=== PATIENT | female | born 1990 | race Caucasian/White ===

== ENCOUNTER 2019-08-04 10:41 | Inpatient (IN) | payer MEDICAID, SELFPAY ==
[2019-08-04 11:04] VITALS: RESP 18; TEMP 36.6; BMI 29.4
[2019-08-04 11:33] VITALS: TEMP 36.6
[2019-08-04] MEDS: dextrose 5%-lactated ringers 1,000 ML 125 ML IV ×2 (12:16→19:57)
[2019-08-04] MEDS: ampicillin 2,000 MG in sodium chloride 0.9% (plus) 50 ML 100 MG IV (12:17)
[2019-08-04 12:40] LABS: Basophils % 0.2 %; Eosinophils # 0.1 10^3/uL (0.0-0.8); Eosinophils % 0.4 %; Hematocrit 32.2 % (37.0-47.0); Hemoglobin 10.5 g/dL (11.5-15.3); Lymphocytes # 1.2 10^3/uL (0.8-4.8); Lymphocytes % 10.5 %; Mean Corpuscular HGB Conc 32.6 g/dL (30.0-36.0); Mean Corpuscular Hemoglobin 28.2 pg (28.0-34.0); Mean Corpuscular Volume 86.3 fL (81-99); Mean Platelet Volume 10.9 fL (7.4-10.4); Monocytes # 0.6 10^3/uL (0.2-0.9); Monocytes % 4.8 %; Neutrophils # 9.5 10^3/uL (1.8-7.7); Neutrophils % 83.7 %; Nucleated Red Blood Cells % 0 %; Platelet Count 257 10^3/cmm (130-400); Red Blood Count 3.73 10^6/uL (4.1-5.3); Red Cell Distribution Width 14.6 % (12.1-15.1); White Blood Count 11.4 10^3/uL (4.0-10.0)
[2019-08-04] MEDS: miSOPROStol 100 mcg tablet 25 MCG VAGINAL (14:15)
[2019-08-04 15:30] VITALS: RESP 16; TEMP 36.7
[2019-08-04 15:52] LABS: Amphetamines Screen Urine Negative (Negative); Barbiturates Screen Urine Negative (Negative); Benzodiazepines Screen Urine Negative (Negative); Cocaine Screen Urine Negative (Negative); Opiate Screen Urine Negative (Negative); PCP Screen Urine Negative (Negative); THC Screen Urine Negative (Negative)
[2019-08-04] MEDS: ampicillin 1,000 MG in sodium chloride 0.9% (plus) 50 ML 100 MG IV (16:13)
--- NOTE | 2019-08-04 18:40 | PM.OBGYHP ---
Providers/Chief Complaint Admitting Physician: Nidia Oviedo MD Chief Complaint: INDUCTION HPI SUPERVISOR INTERMEDIATES History of Present Illness Kayce Lainez is a 28 year old female 4 para 2-0-1-2 with an EDC of 08/02/2019 as determined by 19-week ultrasound done on 03/09/2019 secondary to unknown last menstrual period and timing of initial presentation for care. She presents at 40-2/7 weeks gestation for elective induction of labor. Her course has been complicated by abnormal glucose tolerance testing during sciatica, tobacco use disorder, headaches and group B strep positive status. Present Details : 4 Para: 2 Dating criteria OB: based on 2nd trimester US only care: good care Ultrasounds: normal mid trimester US Obstetrical complications: other (Abnormal glucose tolerance testing during ) Medical complications OB: neurological (Headaches) and musculoskeletal (Sciatica) Labs Blood type OB HPI: O (+) positive Rubella: Immune RPR: Negative GBS: Positive HBsAG: Negative Other Lab Information: Hemoglobin/hematocrit/platelets: Initially 13.0/30 7.5/196 Urine culture: Negative Antibody screen: Negative Hepatitis C antibody: Negative HIV screen: Negative Pap test: Normal GC/Chlamydia: Negative/negative Quad screen: Declined 1 hour glucose tolerance test: 152 3-hour glucose tolerance test: Fasting of 87, 1 hour of 164, 2-hour of 161, 3-hour 111 Urine drug screen: Negative L&D/Induction Specific History Indication for induction OB: other (Elective) Planned induction method: per misoprostol protocol Review of Systems Const: Denies: fever GI: Denies: abdominal pain, nausea or vomiting : Denies: vaginal bleeding Neuro: Denies: headache Medications/Allergies Home Medications Medication Instructions Recorded Confirmed Last Taken Type [id number] fumarate-FA tab PO 08/04/19 08/04/19 07:45 History [] Allergies Allergy/AdvReac Type Severity Reaction Status Date / Time No Known Allergies Allergy Verified 08/04/19 11:10 [facility] SUPERVISOR INTERMEDIATES Statuses (acute, chronic, etc) shown below reflect problem list status as previously entered and may not be historically accurate Family History (Updated 08/04/19 @ 14:34 by Nidia Lara RN) Family/Other Diabetes Grandmother Cancer Social History (Updated 08/04/19 @ 14:41 by Nidia Lara RN) Smoking and tobacco status: current every day smoker cigarettes Packs smoked per day: 0.5 Years cigarettes smoked: 15 Number of cigarettes per day: 11-20 Quit status (tobacco): not considering quitting Second hand smoke exposure: Yes Alcohol intake: former Desire information about alcohol rehabilitation?: No Counseling given: No Substance/Drug Use: former Date of last use: over 1 year ago Desire information about substance/drug rehabilitation?: No Adopted: No Caregiver/support person: No Lives independently: Yes Household members: significant other and children Marital status: Legally Number of children: 2 Number of grandchildren: 0 service: No Current occupational status: employed History of recent travel: No Sexually active: Yes Current gender identity: Female Special kennedi needs: No Agree to transfusion: Yes History History 4 Term 2 Miscarriages/Ectopic 2 0 Living Children 2 Other Female Reproductive History Hx Age of Menarche: 13 Duration of menses: 6-7 days Cycle Length: 29 days Menstrual flow: normal/abnormal: normal Sexual History Are you sexually active?: Yes Have you ever tested positive for HIV?: No Pap Pap: Normal 02/14/2019 Care AVTAR Calculator Estimated Delivery Date Method Current WG Current Estimate 08/02/19 Ultrasound #1 40w 2d Expected Delivery Route/Plan Vaginal Specific Issues/Plans See scanned record for OB visit log OB Visit Log Initial Weight: Not Recorded Date <del>?</del> EGA Weight BP Albumin <del>?</del> Glucose Nitrate <del>?</del> Blood Fundal Ht PRES HR Movement Edema Dilation Effacement Station 08/04/19 <del>?</del> 40w 2d 73.028 kg <del>?</del> <del>?</del> Vertex 130 135 130 125 125 125 125 135 140 140 140 -2 Vitals/I&O/Wt Last Vital Signs Temp 98.0 F 08/04/19 15:30 Resp 16 08/04/19 15:30 08/04/19 08/04/19 08/04/19 06:59 14:59 22:59 Intake Total 341.667 / 341.667 Balance 341.667 / 341.667 Weight last 48 hrs Weight 73.028 kg Physical Exam Narrative: EXAM NARRATIVE: For complete physical examination please refer to her record. Upon arrival this morning she had mild infrequent contractions and heart tones had a baseline within normal limits with moderate variability, accelerations and no decelerations. : MANUAL OB EXAM: dilated 3 cm, effaced (30%), station high and other (Vertex, membranes intact) A&P Assessment and plan (1) 40 weeks gestation of : Status: Acute Code(s): Z3A.40 - 40 weeks gestation of (2) Encounter for induction of labor: Cytotec as discussed in the office with patient Status: Acute Code(s): Z34.90 - Encounter for supervision of normal , unspecified, unspecified trimester (3) Group B Streptococcus carrier state affecting : Antibiotics per the group be strep protocol prior to initiation of Cytotec Status: Acute Code(s): O99.820 - Streptococcus B carrier state complicating (4) Smoking (tobacco) complicating , third trimester: Continue to encourage cessation Status: Acute Code(s): O99.333 - Smoking (tobacco) complicating , third trimester Additional A&P Information Additional A&P Information: Patient is also desirous of sterilization and has her consent signed 02/14/2019 and on her chart with office consultation at least scheduled and I believe completed. We will consult [facility] women's health care upon delivery. Attestations Medical Necessity Statement*: As patient has not yet delivered she will require at least 2 overnight stays. Coding Level of Care Code Acute Home Theater Specialist for Chg Fwd Diagnoses 40 weeks gestation of Z3A.40 Encounter for induction of labor Z34.90 Group B Streptococcus carrier state affecting O99.820 Smoking (tobacco) complicating , third trimester O99.333
[2019-08-04] MEDS: lactated ringers 1,000 ML 999 ML IV (18:43)
[2019-08-04] MEDS: oxytocin 30 UNIT/500 ML BAG 600 UNIT IV (19:28)
[2019-08-04] MEDS: lidocaine 2% INJ 20 mL INJECTION (20:09)
--- NOTE | 2019-08-04 20:53 | PM.DELIVERY ---
 Delivery Note: Date of delivery: 08/04/19 Pre-Delivery Course: Patient arrived late this morning for planned induction of labor electively at 40-2/7 weeks gestation. When she arrived she was antonieta mildly and very occasionally and was 3 cm dilated and 30% effaced, -3 station which was her exact same exam 1 week ago in clinic. We began antibiotics per the group B strep protocol, and 2 hours into her first dose of antibiotics we gave her a dose of Cytotec to begin her induction. The Cytotec was given at 1415 this afternoon. Patient began antonieta albeit infrequently but with increasing frequency and intensity throughout the afternoon. At 1835 she was 4 to 5 cm dilated and antonieta every 1 to 1-1/2 minutes off of the first dose of Cytotec but is been given 4 hours prior. At that time, since she was 50% effaced and -2 station we elected to perform amniotomy. This was done at 1835 and was productive of a small amount of clear fluid. Shortly thereafter she was 6 cm dilated and was being prepared for her requested epidural. However within the next 45 minutes she was completely dilated. Delivery: Patient was completely dilated at 1916. We rapidly prepared for delivery and she began the active portion of the second stage of her labor at 1918 and delivered with 1 push at 1918 as well. Baby's head was straight OA. Nuchal cord x1 was loose and easily manually reduced on the perineum. Bulb suctioning was done upon delivery of the baby's head and of the baby's body. Terminal meconium was noted upon delivery. Baby was placed on maternal abdomen while cord was clamped by myself, cut by the father the baby and cord blood obtained. Delayed cord clamping was performed 40 seconds postdelivery. Baby was placed skin to skin nearly immediately. Gentle traction was placed on the cord, and intravenous Pitocin in routine doses was begun. Placenta delivered intact at 1928 and appeared mature and otherwise without defect. Fundal massage revealed a firm uterus. The perineum and cervix were inspected, and a second-degree perineal laceration was found and repaired with 2-0 chromic suture in standard 3 layer fashion after a local of 1 mL of lidocaine. Estimated blood loss was 300 mL and appeared to be mostly the placental separation bleeding. Post-Delivery Status: Mother and baby were stable. Baby had Apgars of 8 at 1 minute and 9 at 5 minutes and weighed 7 pounds 8 ounces/3 405 g. Patient was desirous of sterilization. Dr. Liang was consulted shortly after delivery. A&P Assessment and plan (1) 40 weeks gestation of : Status: Resolved Code(s): Z3A.40 - 40 weeks gestation of (2) Encounter for induction of labor: Status: Resolved Code(s): Z34.90 - Encounter for supervision of normal , unspecified, unspecified trimester (3) Group B Streptococcus carrier state affecting : Status: Resolved Code(s): O99.820 - Streptococcus B carrier state complicating (4) Smoking (tobacco) complicating , third trimester: Status: Resolved Code(s): O99.333 - Smoking (tobacco) complicating , third trimester (5) Normal vaginal delivery of fourth : Routine orders Status: Acute Code(s): O80 - Encounter for full-term uncomplicated delivery (6) Second degree perineal laceration during delivery, delivered: Status: Acute Code(s): O70.1 - Second degree perineal laceration during delivery (7) Abnormal glucose tolerance test during , delivered: Status: Acute Code(s): O99.814 - Abnormal glucose complicating childbirth Coding Level of Care Code Acute Band Aid Machine Operator for Chg Fwd Diagnoses 40 weeks gestation of Z3A.40 Encounter for induction of labor Z34.90 Group B Streptococcus carrier state affecting O99.820 Smoking (tobacco) complicating , third trimester O99.333 Normal vaginal delivery of fourth O80 Second degree perineal laceration during delivery, delivered O70.1 Abnormal glucose tolerance test during , delivered O99.814
[2019-08-04 21:00] VITALS: RESP 16
--- NOTE | 2019-08-04 21:12 | PM.CONSULT ---
Providers/Reason For Consult Consulting Physican/Specialty*: Kit Liang MD - TECHNOLOGY SALES REPRESENTATIVE Reason for Consult*: Desires sterilization Requesting Physcian: Dr. Nidia Oviedo Attending Physician: Nidia Oviedo MD History of Present Illness History of Present Illness Patient is a 28-year-old white female 4, now para 3-0-1-3 with an EDC of 08/02/2019. She is status post vaginal delivery earlier this evening. Patient had stated during the that she did not want any further children wanted to proceed with sterilization. This has been previously discussed by Dr. Oviedo with the patient. She had signed Medicaid consent form on 02/14/2019. Following delivery, she is still adamant that she wishes to proceed with sterilization. She states that she does not want any further children. She does desire what ever procedure is considered the most effective at preventing . Review of Systems Const: Denies: fever or chills Eyes: Denies: change in vision ENMT: Denies: throat pain Card: Denies: chest pain, palpitations or lightheadedness Resp: Reports: productive cough; Denies: shortness of breath or wheezing GI: Denies: abdominal pain, nausea, vomiting or diarrhea : Denies: difficulty urinating, painful urination or vaginal discharge Neuro: Denies: headache, dizziness or seizure-like activity Psych: Denies: anxiety or depression Endo: Denies: cold intolerance or hot flashes Nura/Lymph: Denies: easy bruising or easy bleeding All/Imm: Denies: hives or seasonal allergies Meds/Allergies Home Medications and Allergies Allergies Allergy/AdvReac Type Severity Reaction Status Date / Time No Known Allergies Allergy Verified 08/04/19 11:10 Current Medications Current Medications Generic Name Dose Route Start Last Admin Trade Name Freq PRN Reason Stop Dose Admin Dextrose/Lactated Ringer's 1,000 mls @ 125 mls/hr 08/04/19 11:45 08/04/19 19:57 Dextrose 5%-Lactated Ringers IV 125 mls/hr .Q8H KRIS Administration Ampicillin Sodium 1,000 mg/ 50 mls @ 100 mls/hr 08/04/19 15:45 08/04/19 16:44 Sodium Chloride IV Infused Q4H KRIS Infusion Protocol Ampicillin Sodium 2,000 mg/ 50 mls @ 100 mls/hr 08/04/19 11:45 08/04/19 12:48 Sodium Chloride IV Infused ONCE KRIS Infusion Protocol Lactated Ringer's 1,000 mls @ 999 mls/hr 08/04/19 18:23 08/04/19 18:43 Lactated Ringers IV 999 mls/hr .Q1H1M PRN Administration hypotension PFSH Acute PFSH: Statuses (acute, chronic, etc) shown below reflect problem list status as previously entered and may not be historically accurate Medical History Chronic headaches (Acute) Family History Family/Other Diabetes uncle Grandmother Cancer Mother Hypertension Social History Smoking and tobacco status: current every day smoker cigarettes Packs smoked per day: 0.5 Years cigarettes smoked: 15 Number of cigarettes per day: 11-20 Quit status (tobacco): not considering quitting Second hand smoke exposure: Yes Alcohol intake: former Desire information about alcohol rehabilitation?: No Counseling given: No Substance/Drug Use: former Date of last use: over 1 year ago Desire information about substance/drug rehabilitation?: No Adopted: No Caregiver/support person: No Lives independently: Yes Household members: significant other and children Marital status: Legally Number of children: 2 Number of grandchildren: 0 service: No Current occupational status: employed History of recent travel: No Sexually active: Yes Current gender identity: Female Special kennedi needs: No Agree to transfusion: Yes Female Reporductive History: : 4 Para: 3 Spontaneous abortions: Yes (1) Vitals/I&O/Wt Last Vital Signs Temp 98.0 F 08/04/19 15:30 Resp 16 08/04/19 15:30 08/04/19 08/04/19 08/04/19 06:59 14:59 22:59 Intake Total 50 / 50 391.667 / 441.667 Balance 50 / 50 391.667 / 441.667 Weight last 48 hrs Weight 161 lb Physical Exam Const: COMMON NORMALS: no apparent distress, average body habitus, alert and well nourished GENERAL APPEARANCE: well developed ORIENTATION/CONSCIOUSNESS: Yes oriented to person, Yes oriented to place and Yes oriented to time Neck/C-Spine: COMMON NORMALS: thyroid normal GENERAL: Yes trachea midline THYROID: thyroid normal Resp: COMMON NORMALS: normal respiratory effort and clear to auscultation bilaterally AUSCULTATION: clear to auscultation bilaterally Cardio: COMMON NORMALS: regular rate, regular rhythm, no gallops and no rub RATE: regular rate RHYTHM: regular rhythm PERIPHERAL PULSES: posterior tibial pulses present GI: COMMON NORMALS: soft to palpation, non-tender, no hepatosplenomegaly and no masses (Except for nontender uterus approximately 1 fingerbreadth below the umbilicus) AUSCULTATION: Yes normoactive bowel sounds PALPATION: Yes soft, Yes no hepatosplenomegaly and No hernia : EXTERNAL FEMALE EXAM: No hernia Neuro: SENSORIUM/ORIENTATION: Yes alert, Yes oriented to person, Yes oriented to place and Yes oriented to time Psych: COMMON NORMALS: affect normal MOOD & AFFECT: Yes euthymic mood A&P Assessment and plan (1) Sterilization consult: Permanence of sterilization was discussed with the patient in detail. Alternatives including reversible methods and vasectomy were discussed with the patient. Risks and failure rates associated with these methods were discussed. Different sterilization methods including and interval sterilization by partial salpingectomy, complete salpingectomy, tubal fulguration, and Falope ring application were discussed including failure rates, surgical risks, and expectations following surgery. Inability of complete salpingectomy to be reversed was discussed. Risk of ectopic was discussed. Questions were answered. She wished to schedule for an interval sterilization with complete removal of tubes. Since her original Medicaid consent would be beyond the 180 days at the time that the procedure could be performed, Medicaid consent was re-signed today, 08/04/2019. Patient to be scheduled for outpatient laparoscopic bilateral tubal fulguration with complete salpingectomy at approximately 5 to 6 weeks post delivery. Status: Acute Code(s): Z30. - Encounter for other general counseling and advice on contraception Coding Level of Care Code Acute Mining Plant Operator for Chg Fwd Exam Problem Focused Diagnoses Sterilization consult Z
[2019-08-04] MEDS: benzocaine-menthol 78 gm Canister 1 SPRAY TOPICAL (21:30)
[2019-08-04] MEDS: lanolin oint 7 gm 1 APPLIC TOPICAL (21:31)
[2019-08-04] MEDS: HYDROcodone-acetaminophen 5-325 mg Tablet 1 TAB PO (22:16)
[2019-08-04 23:30] VITALS: BP 128/75; PULSE 78; RESP 17; TEMP 37.2; O2SAT 96
[2019-08-05] VITALS (8 sets, daily range): BP systolic 112–131; BP diastolic 68–81; PULSE 70–83; RESP 15–16; TEMP 36.6–36.9; O2SAT 95–96
[2019-08-05] MEDS: HYDROcodone-acetaminophen 5-325 mg Tablet 1 TAB PO ×4 (04:02→18:21)
--- NOTE | 2019-08-05 08:16 | P.DS_ITS ---
Discharge Providers METAL SLITTER Date of Admission: 08/04/19 10:41 Date of Discharge: 08/05/19 Attending Provider at Admission: Nidia Oviedo MD Attending Provider at Discharge: Nidia Oviedo MD Consults: Dr. Liang from [facility] regarding sterilization procedure which patient has chosen to do as an interval procedure. Diagnoses at Discharge Discharge Diagnosis (1) 40 weeks gestation of : Status: Resolved (2) Encounter for induction of labor: Status: Resolved (3) Group B Streptococcus carrier state affecting : Status: Resolved (4) Smoking (tobacco) complicating , third trimester: Status: Resolved (5) Normal vaginal delivery of fourth : Status: Acute (6) Second degree perineal laceration during delivery, delivered: Status: Acute (7) Abnormal glucose tolerance test during , delivered: Status: Acute Reason for Visit Reason for Visit: Reason For Visit: INDUCTION Hospital Course Hospital Course: Patient arrived yesterday at around noon for a planned induction that had been postponed from 08/03/2019 secondary to 40-2/7 weeks gestation. As she was group B strep positive we began with antibiotics per the group B strep protocol. 2 hours into the first dose we gave her a dose of Cytotec vaginally. She began to contract as frequently as every 1 to 1-1/2 minutes. After she had received 2 doses of the antibiotics over a 4-hour period of time she was found to be 4 to 5 cm dilated. At that time we performed amniotomy and she rapidly dilated to complete and delivered a viable female infant with less than 1 push. She sustained a second-degree perineal laceration which was repaired in the typical manner with minimal blood loss. Today she is feeling fine and has some perineal soreness and some cramping with breast- feeding but minimal bleeding. She plans to pursue an interval sterilization procedure 6 weeks . She is ready for discharge and plans to board with her baby who will be discharged tomorrow. Information Peripartum Data: Infant Delivery Method: Vaginal Laceration description: Perineal - 2nd Degree (Repaired) complications: none [place]: 3: Gender: Female Disposition of : home Additional Information: Baby needs to stay for another 24 hours to meet the standard of care for mother with group B strep with adequate intrapartum antibiotic prophylaxis Physical Exam Const: COMMON NORMALS: no apparent distress, no limitations and healthy appearing GENERAL APPEARANCE: cooperative and comfortable ORIENTATION/CONSCIOUSNESS: Yes awake, Yes oriented to person, Yes oriented to place and Yes oriented to time Resp: COMMON NORMALS: normal respiratory effort and clear to auscultation bilaterally EFFORT & INSPECTION: Yes able to speak in complete sentences AUSCULTATION: clear to auscultation bilaterally Cardio: COMMON NORMALS: regular rate, regular rhythm, S1 normal heart sound, S2 normal heart sound and peripheral pulses 2+ throughout; negative for no murmurs RATE: regular rate RHYTHM: regular rhythm HEART SOUNDS: S1 normal, S2 normal and no murmurs PERIPHERAL PULSES: pulses 2+ throughout : UTERUS PALPATION: Yes other OB (Firm and 2 fingerbreadths below the umbilicus, nontender) Extremity: COMMON NORMALS: no clubbing, cyanosis or edema Neuro: SENSORIUM/ORIENTATION: Yes oriented to person, Yes oriented to place and Yes oriented to time Psych: COMMON NORMALS: mental status grossly normal, thought process normal, cooperative, affect normal and speech normal SPEECH: Yes normal speech THOUGHT PROCESS: normal thought process Discharge Data Data Completed and Pending: Pending at discharge Category Date Time Status Hemagram Routine Lab 08/05/19 08:14 Ordered Labs from last 24 hours 08/04/19 08/04/19 13:35 11:45 WBC 11.4 H RBC 3.73 L Hgb 10.5 L Hct 32.2 L MCV 86.3 MCH 28.2 MCHC 32.6 RDW 14.6 Plt Count 257 MPV 10.9 H Neut % (Auto) 83.7 Lymph % (Auto) 10.5 [place] % (Auto) 4.8 Eos % (Auto) 0.4 Baso % (Auto) 0.2 Neut # (Auto) 9.5 H Lymph # (Auto) 1.2 [place] # (Auto) 0.6 Eos # (Auto) 0.1 Baso # (Auto) 0.0 Nucleated RBC % (a uto) 0 Nucleated RBCs # 0.0 Urine Opiates Scre en Negative Ur Barbiturates Sc reen Negative Ur Phencyclidine S crn Negative Ur Amphetamines Sc reen Negative U Benzodiazepines Scrn Negative Urine Cocaine Scre en Negative U Marijuana (THC) Screen Negative Vitals: Last Vital Signs Temp 98.1 F 08/05/19 05:30 Pulse 71 08/05/19 05:30 Resp 16 08/05/19 05:30 BP 122/78 08/05/19 05:30 Pulse Ox 96 08/05/19 05:30 Discharge Plan Discharge Patient Disposition: Home, Self-Care Condition: Stable Prescriptions: New ibuprofen 800 mg Tablet 800 mg PO TID Qty: 30 RF: 1 hydrocodone-acetaminophen 5-325 mg Tablet 1 tab PO Q4H PRN (Reason: Moderate Pain) Qty: 30 RF: 0 Changed 28-800 mg-mcg Tablet 1 tab PO DAILY Qty: 30 RF: 3 Discharge Orders: Discharge Order (Routine); Ordered 08/05/19 Ordered By: Nidia Oviedo Referrals: Nidia Oviedo MD [Family Provider] - 6 Weeks ( visit with Dr. Oviedo at our [facility] location.) Discharge Diet: Usual diet Discharge Activity: Resume usual activity Patient Instructions: Hydrocodone/Acetaminophen (By mouth), Ibuprofen (By mouth), Vaginal Delivery (DC), OB Discharge Report, OB Food/Drug Interaction Guide, OB Home Care, OB Proud Parent Packet Activity Restrictions/Additional Instructions: *Nothing per vagina x6 weeks *Reference vaginal delivery care notes. Discharge Attestations METAL SLITTER Time Spent in Discharge Care*: less than 30 min Specific Discharge Activities: Specific discharge activities: educating patient, documenting/other paperwork and evaluating patient/reviewing data Status at Discharge: Cognitive status at discharge: cognitively intact , Behavioral status at discharge: cooperative , Functional status at discharge: independent ambulation Overall status at discharge: patient is progressing back to baseline Coding Level of Care Code Acute Executive Sales Assistant for Chg Fwd Diagnoses 40 weeks gestation of Z3A.40 Encounter for induction of labor Z34.90 Group B Streptococcus carrier state affecting O99.820 Smoking (tobacco) complicating , third trimester O99.333 Normal vaginal delivery of fourth O80 Second degree perineal laceration during delivery, delivered O70.1 Abnormal glucose tolerance test during , delivered O99.814
[2019-08-05 08:55] LABS: Hematocrit 33.5 % (37.0-47.0); Hemoglobin 10.8 g/dL (11.5-15.3); Mean Corpuscular HGB Conc 32.2 g/dL (30.0-36.0); Mean Corpuscular Hemoglobin 27.8 pg (28.0-34.0); Mean Corpuscular Volume 86.3 fL (81-99); Mean Platelet Volume 10.8 fL (7.4-10.4); Platelet Count 271 10^3/cmm (130-400); Red Blood Count 3.88 10^6/uL (4.1-5.3); Red Cell Distribution Width 14.6 % (12.1-15.1); White Blood Count 11.7 10^3/uL (4.0-10.0)
[2019-08-05] MEDS: docusate sodium 100 mg Capsule PO ×2 (09:22→18:22)
[2019-08-05] MEDS: prenatal vitamin Capsule 1 CAP PO (09:22)
== END 2019-08-05 21:11 | disposition home or self-care (01) | DRG 807 ==
PROVIDERS: Admitting Provider Family Medicine; Family Provider Family Medicine; Visit Provider Family Medicine
DX: O69.2XX0 Labor and delivery complicated by other cord entanglement, with compression, not applicable or unspecified (principal); Z37.0 Single live birth; O99.824 Streptococcus B carrier state complicating childbirth; O70.1 Second degree perineal laceration during delivery; O99.334 Smoking (tobacco) complicating childbirth; F17.210 Nicotine dependence, cigarettes, uncomplicated; O99.814 Abnormal glucose complicating childbirth; Z3A.40 40 weeks gestation of pregnancy
CPT/HCPCS: 36415; 59025; 59409; 80307; 85025; 85027; 98960; 99211; 99221; J0290; J2001; J2795

== ENCOUNTER 2019-09-06 07:13 | Day surgery (SDC) | payer MEDICAID, SELFPAY ==
[2019-09-01 11:59] VITALS: BMI 25.6
--- NOTE | 2019-09-01 12:32 | ANES.PREANES ---
Pre-Anesthetic Assessment Pre-Anesthetic Assessment: Height/Weight: Height 1.57 m Weight 63.503 kg Proposed Procedure: Operation Date: 09/06/19 10:05 Proposed Procedures p Laparoscopic Tubal Fulguration 48442 Z30.2(Not Applicable) - Kit Liang MD s Laparoscopic Salpingectomy(Not Applicable) - Kit Liang MD Social: Social History: Tobacco Exam: Pre-Anes Outpt Exam: alert, oriented x 3, clear to auscultation bilaterally and regular rate & rhythm Airway: Submandibular: WNL Cervical ROM: WNL MP: 2 Dentition: Other (teeth very poor) History/ROS: No significant history except as noted Pulmonary: Pulmonary: None reported CV/HEM: CV/HEM: None reported : : None reported Hepatic: Hepatic: None reported GI: GI: GERD (occ) Metabolic: Metabolic: None reported Musc/skel: Musc/skel: None reported Neuropsych: Neuropsych: Anxiety and Depression Anesthetic Plan: ASA status: II Anesthesia: Anesthesia Evaluation and General Risk of > 500 ml blood loss (7ml/kg in children): No PFSH Anesthesia PFSH: Social History (Updated 09/01/19 @ 09:25 by Emma Jerez LPN) Smoking and tobacco status: current every day smoker cigarettes Packs smoked per day: 0.5 Years cigarettes smoked: 15 Quit status (tobacco): not considering quitting Alcohol intake: former Desire information about alcohol rehabilitation?: No Counseling given: No Substance/Drug Use: never Marital status: Legally Number of children: 2 Number of grandchildren: 0 Female Reproductive History: Para: 3 Spontaneous abortions: Yes (1) Data Anesthesia Cardiac Studies: No Data to Display
[2019-09-01 12:49] LABS: Basophils % 0.3 %; Eosinophils # 0.1 10^3/uL (0.0-0.8); Eosinophils % 2.3 %; Hematocrit 42.3 % (37.0-47.0); Hemoglobin 13.7 g/dL (11.5-15.3); Lymphocytes # 1.9 10^3/uL (0.8-4.8); Lymphocytes % 30.6 %; Mean Corpuscular HGB Conc 32.4 g/dL (30.0-36.0); Mean Corpuscular Hemoglobin 28.1 pg (28.0-34.0); Mean Corpuscular Volume 86.9 fL (81-99); Mean Platelet Volume 10.4 fL (7.4-10.4); Monocytes # 0.3 10^3/uL (0.2-0.9); Monocytes % 5.3 %; Neutrophils # 3.7 10^3/uL (1.8-7.7); Neutrophils % 61.3 %; Nucleated Red Blood Cells % 0 %; Platelet Count 271 10^3/cmm (130-400); Red Blood Count 4.87 10^6/uL (4.1-5.3); Red Cell Distribution Width 14.9 % (12.1-15.1)
[2019-09-06 07:31] LABS: OR HCG Qualitative Urine Negative (Negative)
[2019-09-06 07:32] VITALS: BP 95/62; PULSE 67; RESP 18; TEMP 36.4; O2SAT 98
[2019-09-06] MEDS: sodium chloride 0.9% 1,000 ML 30 ML IV (07:40)
[2019-09-06] MEDS: ketorolac 30 mg/mL INJ IVP (07:41)
--- NOTE | 2019-09-06 07:45 | P.ANESUD_ITS ---
Pre-Anesthetic Update Pre-Anesthetic Assessment: Date of Surgery/Procedure: 09/06/19 Preop Purvi gnosis: Undesired fertility Proposed Procedure: Operation Date: 09/06/19 08:40 Proposed Procedures p Laparoscopic Tubal Fulguration 30986 Z30.2(Not Applicable) - Kit Liang MD s Laparoscopic Salpingectomy(Not Applicable) - Kit Liang MD Any changes to Pre-Anesthetic Assessment?: No Last Intake: Intake Last Liquid Date 09/05/19 Last Liquid Time 20:00 Last Solid Date 09/05/19 Last Solid Time 20:00 Labs Last 48hrs: Laboratory Results - last 48 hr 09/06/19 07:28 Urine HCG, Qual Negative Vitals: Temperature 97.5 F L 09/06/19 07:32 Temperature Source Tympanic 09/06/19 07:32 Pulse Rate 67 09/06/19 07:32 Pulse Rhythm 09/06/19 07:32 Respiratory Rate 18 09/06/19 07:32 Blood Pressure 95/62 09/06/19 07:32 Blood Pressure Tasha n 73 09/06/19 07:32 Pulse Oximetry 98 09/06/19 07:32 Oxygen Delivery Me thod 09/06/19 07:32 Exam: Pre-Anes Outpt Exam: alert, oriented x 3, clear to auscultation bilaterally and regular rate & rhythm Other Pertinent Information: Other Pertinent Information: No medications this morning Cardiac Studies: No Data to Display
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
--- NOTE | 2019-09-06 09:45 | P.OP_ITS ---
Operative Report Date of procedure: September 06, 2019 Pre-op Diagnosis: Undesired Fertility Post-op Diagnosis: Undesired fertility Procedure Done: Laparoscopic bilateral tubal fulguration with salpingectomy Specimens removed/disposition: Right and left fallopian tubes Surgeon: Kit Liang Anesthesia: General Estimated blood loss (mL): 2 IV fluids (mL): 500 Brief History: Patient is a 29-year-old white female 4, para 3-0-1-3 who is . She delivered on 08/04/2019. She is stated during her that she did not want any further children want to proceed with sterilization. Following delivery she had decided to proceed with complete removal of tubes and have procedures performed as an interval sterilization. She is still adamant that she wishes to proceed with complete removal of tubes. I reviewed with her that this could not be reversed. Failure rates and risk for ectopic were reviewed. Questions were answered and she still wished to proceed with complete removal of tubes. Medicaid consent form signed 08/04/2019 Procedure: Patient was taken to the operating room were general anesthesia was obtained. She was prepped and draped in the usual sterile fashion in the dorsal supine position with legs in John style stirrups. Sequential compression boots were placed prior to starting the case. Catheter was inserted and bladder was drained. Exam under anesthesia was performed and patient was found to have second-degree uterine prolapse. Weighted speculum was placed in the vagina and the cervix was grasped with a single-tooth tenaculum. A ZUMI was placed. The infraumbilical region was injected with 1% lidocaine with epinephrine. Skin incision was made with the knife in the lower edge of the navel and a size 10 tr ocar and sheath were inserted under direct visualization using an Optiview type technique. Trocar was removed and replaced with a laparoscope confirming intra- abdominal placement. The abdomen was inflated with carbon dioxide. The anterior abdominal wall was inspected and noted to be free of adhesions. In the left and right lower quadrants lateral to the inferior epigastric vessels, the skin was injected with 1% lidocaine with epinephrine. Skin incisions were made with a knife and a 5 mm trocar and sheath were inserted under direct visualization at each site. The pelvis was thoroughly inspected. The left tube and ovary were normal in appearance. Uterus was normal in appearance. Anterior and posterior cul-de-sacs were normal in appearance. Using the LigaSure device, starting on the left side at the fimbriated end of the tube, the mesosalpinx was sealed and cut along the length of the tube. At the proximal end of the tube, the tube itself was sealed and cut. The fallopian tube was brought out through the trocar sleeve. Using the LigaSure device, starting on the right side at the fimbriated end of the tube, the mesosalpinx was sealed and cut along the length of the tube. At the proximal end of the tube, the tube itself was sealed and cut. The fallopian tube was brought out through the trocar sleeve. The dissection area was thoroughly inspected and noted to be hemostatic. The abdomen was deflated and the sleeves removed. The umbilical site was reapproximated with 4-0 Vicryl suture. The 5 mm sites reapproximated well and required no suturing. Skin glue was applied to all sites. The ZUMI was removed and there was minimal bleeding from the tenaculum site. Patient tolerated the procedure well. Sponge, needle and instrument counts were correct. DRAINS: None COMPLICATIONS: None FINDINGS: Second-degree uterine prolapse. Normal-appearing uterus, tubes, and ovaries. POSTOPERATIVE STATUS: The patient was transferred to the recovery room in satisfactory condition. DISPOSITION: Discharge to home when criteria was met. FOLLOWUP APPOINTMENT: Followup appointment is scheduled in my office on 09/30/2019. MEDICATIONS: Patient received prescriptions for: [place] 5/325 mg, 1 to 2 tablets every 6 hours as needed for pain, #20, 0 refills She may continue her usual home medications (patient reports having ibuprofen 800 mg tablets at home).
[2019-09-06 09:54] VITALS: BP 115/52; PULSE 110; RESP 16; TEMP 36.5; O2SAT 96
[2019-09-06 10:00] VITALS: BP 97/48; PULSE 77; RESP 18; O2SAT 97
[2019-09-06 10:05] VITALS: BP 98/50; PULSE 77; RESP 18; TEMP 36.9; O2SAT 97
[2019-09-06 10:08] VITALS: BP 113/70; PULSE 81; RESP 18; TEMP 36.9; O2SAT 93
[2019-09-06] MEDS: HYDROcodone-acetaminophen 5-325 mg Tablet 1 TAB PO (10:35)
[2019-09-06 10:37] VITALS: BP 110/73; PULSE 67; RESP 18; O2SAT 95
== END 2019-09-06 10:55 | disposition home or self-care (01) ==
PROVIDERS: Family Provider Family Medicine; PCP Family Medicine; Visit Provider Obstetrics & Gynecology
PROC: (CPT 58670; principal; 2019-09-06 08:40)
PROC: (CPT 58661; 2019-09-06 08:40)
DX: Z83.3 Family history of diabetes mellitus (principal); Z82.49 Family history of ischemic heart disease and other diseases of the circulatory system; F17.210 Nicotine dependence, cigarettes, uncomplicated; K21.9 Gastro-esophageal reflux disease without esophagitis
CPT/HCPCS: 58661; 12345; 36415; 81025; 84703; 85025; 88302; J1885; J2001; J2405; J2704; J2710; J3010; J3490; J7030

== ENCOUNTER → 2020-03-16 11:55 | Outpatient (BNVA) | payer MEDICAID, SELFPAY | PROVIDERS: Family Provider Family Medicine; PCP Family Medicine; Visit Provider Nurse Practitioner Family | DX: E04.9 Nontoxic goiter, unspecified (principal); H65.193 Other acute nonsuppurative otitis media, bilateral | CPT/HCPCS: 80053; 84439; 84443; 84481; 85025; 86800 ==

== ENCOUNTER → 2020-04-03 12:41 | Outpatient (BNVA) | payer MEDICAID, SELFPAY | PROVIDERS: Family Provider Family Medicine; PCP Family Medicine; Visit Provider Internal Medicine | DX: E05.90 Thyrotoxicosis, unspecified without thyrotoxic crisis or storm (principal); D70.9 Neutropenia, unspecified; E04.9 Nontoxic goiter, unspecified; R74.0 Nonspecific elevation of levels of transaminase and lactic acid dehydrogenase [LDH] | CPT/HCPCS: 99205 ==

== ENCOUNTER → 2020-04-04 10:25 | Outpatient (BNVA) | payer MEDICAID, SELFPAY | PROVIDERS: Family Provider Family Medicine; PCP Family Medicine; Visit Provider Internal Medicine | DX: E05.90 Thyrotoxicosis, unspecified without thyrotoxic crisis or storm (principal); D70.9 Neutropenia, unspecified; E04.9 Nontoxic goiter, unspecified; R74.0 Nonspecific elevation of levels of transaminase and lactic acid dehydrogenase [LDH] | CPT/HCPCS: 80076; 83516; 84439; 84480; 85025 ==

== ENCOUNTER 2020-04-10 14:16 | Outpatient (CLI) | payer MEDICAID, SELFPAY ==
--- NOTE | 2020-04-10 14:19 | US_ITS ---
WS: [id number] ULTRASOUND THYROID TECHNIQUE: Ultrasound of the thyroid. CLINICAL INFORMATION: enlarged thyroid, hyperthyroid COMPARISON: None. FINDINGS: Thyroid: Enlarged heterogeneous thyroid. Thyroid volume significantly enlarged. Diffuse increased thy roid vascularity can be seen with thyroiditis. Right thyroid lobe: 6.7 cm x 3.5 cm x 3.3 cm Left thyroid lobe: 6.6 cm x 3.7 cm x 2.8 cm. Isthmus: 1.3 mm. Cervical lymphadenopathy: None. US/US thyroid 47101 IMPRESSION: 1. Markedly enlarged heterogeneous thyroid. 2. Right lobe volume 40 cc left and lobe volume 35 cc. Recommend correlation w ith thyroid function tests. 3. Diffuse increased thyroid vascularity is nonspecific but can be seen with t hyroiditis including Graves' disease, Rosey's, and autoimmune thyroiditis.
== END 2020-04-10 14:17 | disposition home or self-care (01) ==
PROVIDERS: PCP Nurse Practitioner Family; Visit Provider Nurse Practitioner Family
DX: E04.9 Nontoxic goiter, unspecified (principal)
CPT/HCPCS: 76536

== ENCOUNTER → 2020-04-12 09:41 | Outpatient (BNVA) | payer MEDICAID, SELFPAY | PROVIDERS: PCP Nurse Practitioner Family; Visit Provider Nurse Practitioner | DX: R74.0 Nonspecific elevation of levels of transaminase and lactic acid dehydrogenase [LDH] (principal); E05.90 Thyrotoxicosis, unspecified without thyrotoxic crisis or storm | CPT/HCPCS: 80053 ==

== ENCOUNTER → 2020-05-01 08:34 | Outpatient (BNVA) | payer MEDICAID, SELFPAY | PROVIDERS: PCP Nurse Practitioner Family; Visit Provider Specialist | DX: E04.9 Nontoxic goiter, unspecified (principal) | CPT/HCPCS: 84439; 84443; 86800 ==

== ENCOUNTER → 2020-05-10 09:41 | Outpatient (BNVA) | payer MEDICAID, SELFPAY | PROVIDERS: PCP Nurse Practitioner Family; Visit Provider Nurse Practitioner Family | DX: J98.01 Acute bronchospasm (principal); E05.90 Thyrotoxicosis, unspecified without thyrotoxic crisis or storm | CPT/HCPCS: 80053; 84480; 85025 ==

== ENCOUNTER → 2020-05-11 09:21 | Outpatient (BNVA) | payer MEDICAID, SELFPAY | PROVIDERS: PCP Nurse Practitioner Family; Visit Provider Internal Medicine | DX: E04.9 Nontoxic goiter, unspecified (principal); E05.90 Thyrotoxicosis, unspecified without thyrotoxic crisis or storm; E55.9 Vitamin D deficiency, unspecified; R74.8 Abnormal levels of other serum enzymes; R79.89 Other specified abnormal findings of blood chemistry | CPT/HCPCS: 99214 ==

== ENCOUNTER 2020-06-15 09:07 | Outpatient (CLI) | payer MEDICAID, SELFPAY ==
[2020-06-15 10:14] LABS: 25 Hydroxy Vitamin D 21 ng/mL (30-100); Alanine Aminotransferase 21 U/L (0-33); Albumin Level 4.9 g/dL (3.5-5.2); Alkaline Phosphatase 290 IU/L (35-105); Anion Gap 15.3 (5-19); Aspartate Amino Transferase 19 U/L (0-32); Blood Urea Nitrogen 12 mg/dL (6-20); Calcium 9.7 mg/dL (8.5-10.5); Carbon Dioxide 22 mmol/L (22-29); Chloride 102 mmol/L (98-107); Globulin 2.6 g/dL (1.3-4.6); Glomerular Filtration Rate 261.2 mL/min (90-130); Glucose 88 mg/dL (65-115); Osmolality Calculated 279 mOsm/kg (285-295); Potassium 4.3 mmol/L (3.5-5.1); Sodium 135 mmol/L (136-145); Thyroid Stimulating Hormone 0.01 uIU/mL (0.27-4.20); Total Bilirubin 0.4 mg/dL (0.15-1.2); Total Protein 7.5 g/dL (6.6-8.7)
[2020-06-15 13:12] LABS: Free T4 Free Thyroxine 0.46 ng/dL (0.82-1.77)
[2020-06-16 07:57] LABS: T3 Total 284 ng/dL (76-181)
== END 2020-06-15 09:08 | disposition home or self-care (01) ==
LOC: LAB 09:10
PROVIDERS: PCP Nurse Practitioner Family; Visit Provider Internal Medicine
DX: E04.9 Nontoxic goiter, unspecified (principal); E05.90 Thyrotoxicosis, unspecified without thyrotoxic crisis or storm; R74.8 Abnormal levels of other serum enzymes; E55.9 Vitamin D deficiency, unspecified
CPT/HCPCS: 36415; 80053; 82306; 84439; 84443; 84480; 99213

== ENCOUNTER → 2020-07-19 10:59 | Outpatient (BNVA) | payer MEDICAID, SELFPAY | PROVIDERS: PCP Nurse Practitioner Family; Visit Provider Specialist | DX: E05.00 Thyrotoxicosis with diffuse goiter without thyrotoxic crisis or storm (principal) | CPT/HCPCS: 84439; 84443 ==

== ENCOUNTER → 2020-07-30 09:22 | Outpatient (BNVA) | payer MEDICAID, SELFPAY | PROVIDERS: PCP Nurse Practitioner Family; Visit Provider Nurse Practitioner | DX: G62.9 Polyneuropathy, unspecified (principal); E05.00 Thyrotoxicosis with diffuse goiter without thyrotoxic crisis or storm; F41.9 Anxiety disorder, unspecified; F32.9 Major depressive disorder, single episode, unspecified | CPT/HCPCS: 82607; 83735 ==

== ENCOUNTER 2020-09-11 12:59 | Inpatient (IN) | payer MEDICAID, SELFPAY ==
[2020-09-10 14:43] VITALS: BMI 23.3
[2020-09-11] VITALS (46 sets, daily range): BP systolic 94–122; BP diastolic 47–74; PULSE 72–104; RESP 14–23; TEMP 36.3–36.9; O2SAT 94–99
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
--- NOTE | 2020-09-11 06:41 | W.PM.OPSUD ---
Surgery/Procedure H&P Update DATE OF PROCEDURE: September 11, 2020 DATE H&P PERFORMED: 09/03/20 H&P UPDATE INFORMATION: I have reviewed H&P completed within last 30 days, I have examined patient prior to procedure and No changes to prior documentation PREOP DIAGNOSIS: Grave's Disease/Symptomatic Goiter PLANNED PROCEDURE: Operation Date: 09/11/20 07:00 Proposed Procedures p Total Thyroidectomy 41266 E0500 E05(Not Applicable) - Jae Spencer MD
[2020-09-11] MEDS: sodium chloride 0.9% 1,000 ML 30 ML IV (06:43)
[2020-09-11] MEDS: midazolam 1 mg/mL INJ 2 mL 2 MG IVP (06:43)
[2020-09-11 06:48] LABS: OR HCG Qualitative Urine Negative (Negative)
[2020-09-11] MEDS: ceFAZolin 1,000 mg SDV 1000 MG IRRIGATION (07:50)
[2020-09-11] MEDS: EPINEPHrine 1 mg/mL INJ 3 MG XX (08:33)
[2020-09-11] MEDS: EPINEPHrine 1 mg/mL INJ XX ×2 (09:37→09:42)
[2020-09-11] MEDS: fluorescein 1 mg Strip XX (09:43)
[2020-09-11] MEDS: thrombin 5,000 unit SDV 5000 UNIT XX (10:16)
--- NOTE | 2020-09-11 12:54 | PM.OP ---
Operative Report Date of procedure: September 11, 2020 Pre-op Diagnosis: Grave's Disease/Symptomatic Goiter Post-op diagnosis: same Procedure Done: Total thyroidectomy Pathology: Right and Left thyroid lobes Surgeon: Jae Spencer Workers Compensation Attorney: Vincent Acosta Workers Compensation Attorney: Lou Roberts Anesthesia: General Estimated blood loss (mL): 500 IV fluids (mL): 1,900 Urine output (mL): 200 Complications: None Findings: Large, bilateral diffuse goiter Right and Left recurrent laryngeal nerves identified and preserved Two right and two left parathyroid glands were identified and preserved in place Condition: stable Disposition: ICU Brief History: 30 yo wf who has a long h/o Grave's disease with an associated symptomatic goiter. The patient desires surgical therapy. Procedure: The patient was identified in the preoperative holding area and was taken to the operating room where she was placed on the operating table in the supine position. Anesthesia was obtained with general endotracheal anesthesia using the Nirvana nerve monitoring electrode on the patient's endotracheal tube. A horizontal skin incision was drawn out over the central portion of the patient's very large goiter, and the incision was injected with local anesthesia. The nerve monitoring system was attached to the patient and its function was assured. The patient was then prepped and draped in the usual sterile fashion. The incision was made with a 15 blade and was carried down through the subcutaneous tissues using electrocautery. The strap muscles were divided as they were stretched out in a thin layer over the patient's goiter. At this point attention was turned to the left lobe which was identified and dissected free from the surrounding tissues. The Nallen retractor was placed on the patient and the dissection proceeded at the inferior pole. The inferior pole was dissected free from the thyro thymic horn and all vessels were dissected free and clipped at the capsule of the thyroid and divided with electrocautery. The thyroid isthmus was dissected free from the underlying trachea and was divided with the harmonic scalpel. At this point the dissection proceeded along a broad front in while retracting the skin laterally, the left thyroid lobe was dissected free from the surrounding soft tissues using the Nirvana dissecting hemostat and bipolar cautery. At this point prior to dissecting in the tracheoesophageal groove, the vagus nerve was this stimulated in the cartoid sheath and responded to the nerve monitoring hemostat. At this point the left lobe was rotated medially and the dissection proceeded in the tracheoesophageal groove. The left recurrent laryngeal nerve was identified visually and electrically and was dissected free from the surrounding tissues up to Arevalo's ligament. The lobe was then dissected free at the superior pole while dissecting the individual vessels free and ligated them with ligaclips. The superior pole vessels were then cut thus freeing up the superior pole of the left thyroid lobe. At this point the microbipolar forceps were used to dissect Arevalo's ligament free from the recurrent laryngeal nerve and from the airway thus removing the left thyroid lobe. The patient's upper and lower parathyroid glands were identified and preserved in place. The wound was inspected for hemostasis which was achieved with bipolar cautery and the tracheoesophageal groove was packed with Gelfoam soaked in thrombin and Decadron. Attention was then turned to the right thyroid lobe where a similar procedure was performed. At the end of the procedure both vagus nerves were stimulated in the right and left carotid shealths and the circuit was found to be intact to the recurrent laryngeal nerves. At this point a drain was placed in the patient and the wound was closed with interrupted 4-0 and 5-0 Monocryl sutures in the subcu and as a subcuticular suture. The wound was then covered with Dermabond and Steri-Strips and the procedure was terminated. Control of the patient was returned to anesthesia where she underwent an uneventful reversal of anesthesia and extubation and was taken to the recovery room in stable condition. There were no operative or anesthetic complications
[2020-09-11 13:58] LABS: Calcium 8.4 mg/dL (8.5-10.5); Parathyroid Hormone 14.7 pg/mL (15-65)
[2020-09-11] MEDS: HYDROcodone-acetaminophen 5-325 mg Tablet 1 TAB PO ×2 (14:10→20:29)
[2020-09-11] MEDS: propranolol 20 mg Tablet PO ×2 (14:10→20:28)
[2020-09-11] MEDS: lactated ringers 1,000 ML 100 ML IV ×2 (14:12→23:37)
--- NOTE | 2020-09-11 16:41 | ANE.PACU2 ---
Inpatient post-anesthesia follow up: Airway intact: Yes Vital signs: Temperature 97.4 F Pulse Rate 99 Respiratory Rate 17 Blood Pressure 122/68 Pulse Oximetry 97 Oxygen Delivery Me thod [ Nasal Cannula Current Rate & Del dorota] Oxygen Delivery Me thod Room Air Oxygen Flow Rate [ Current Rate 2 & Delivery] Fraction of Inspir ed Oxygen Hydration adequate: Yes Nausea and vomiting: No Pain level: 1 Mental status: Baseline
[2020-09-11] MEDS: ceFAZolin 1,000 MG in sodium chloride 0.9% (plus) 50 ML 100 MG IV ×2 (16:53→22:18)
--- NOTE | 2020-09-11 17:23 | P.PN_ITS ---
Subjective Subjective: Interval history: 30 yo wf who is night of surgery s/p total thyroidectomy for Grave's disease and symptomatic goiter. The patient reports that she is having some pain, but her voice is unchanged from preop. The patient has been able to take po. She is o/w without c/o. Vitals/I&O/Wt Last Vital Signs Temp 97.4 F L 09/11/20 06:32 Pulse 99 09/11/20 13:45 Resp 17 09/11/20 13:45 BP 122/68 09/11/20 13:45 Pulse Ox 97 09/11/20 13:45 09/11/20 09/11/20 09/11/20 06:59 14:59 22:59 Intake Total 50 / 50 120 / 170 Output Total 200 / 200 Balance -150 / -150 120 / -30 Weight last 48 hrs Weight 58.967 kg Physical Exam HENMT: COMMON NORMALS: normocephalic, atraumatic and external ears normal HEAD & SCALP: normocephalic and atraumatic EXTERNAL EAR: Yes external ears n ormal Eye: COMMON NORMALS: Equal, round and reactive pupils present, EOMs intact bilaterally and conjunctivae normal GENERAL EYE: appearance normal, both eyes and all related structures EYELID: eyelids normal CONJUNCTIVA: Yes conjunctivae normal PUPIL: Yes Equal, round and reactive pupils present Neck/C-Spine: COMMON NORMALS: full ROM and no lymphadenopathy THYROID: other (The patient's thyroidectomy incision is intact and without swelling.) Resp: COMMON NORMALS: normal respiratory effort, No retractions and clear to auscultation bilaterally EFFORT & INSPECTION: Yes able to speak in complete sentences AUSCULTATION: clear to auscultation bilaterally Cardio: COMMON NORMALS: regular rate, regular rhythm and S2 normal heart sound present RATE: regular rate RHYTHM: regular rhythm HEART SOUNDS: S2 normal heart sound present GI: COMMON NORMALS: Normal to inspection, nondistended, normoactive bowel sounds present Extremity: COMMON NORMALS: normal to inspection and full ROM Neuro: COMMON NORMALS: CN's II-XII intact bilaterally, moves all extremities and no focal motor deficits Psych: COMMON NORMALS: mental status grossly normal Urinary Catheter Management^: Anderson: Cath Placed During This Visit: yes, but has since been removed by the nurse Urinary Catheter Date of Insertion: 09/11/20 Urinary Catheter Time of Insertion: 07:37 Date Urinary Catheter Removed: 09/11/20 Time Urinary Catheter Discontinued: 12:08 A&P Additional A&P Information Impression: 1) 30 yo wf who is night of surgery s/p total thyroidectomy for Grave's disease/symptomatic goiter who is doing well 2) Post Op Calcium: the patient's immediate post op PTH and serum Calcium levels were slightly low. Plan: 1) Continue ICU observation of the patient's airway and #2 below. Regular diet. Anticipate d/c when the patient's calcium is stable. 2) Will begin OsCal 600 + D BID tonight. I will adjust based on the patient's serum calicum/albumin levels. We will have the first post op levels drawn now. Attestations Medical Necessity Statement*: The patient is admitted for post op airway and Calcium monotoring. Coding Level of Care Code Acute Construction Ironworker for Jarocho Junior
[2020-09-11 17:43] LABS: Albumin Level 3.8 g/dL (3.5-5.2)
[2020-09-11] MEDS: gabapentin 300 mg Capsule PO (18:08)
[2020-09-11] MEDS: methIMAzole 5 MG Tablet 10 MG PO (18:08)
[2020-09-11] MEDS: BuSPIRONE 10 mg Tablet PO (18:09)
[2020-09-11] MEDS: docusate sodium 100 mg Capsule PO (18:09)
--- NOTE | 2020-09-11 19:14 | PC.NURSE ---
called to let Dr. Spencer know that the calcium lab was cancelled do to error in processing. This was reordered and let him know that we would call him back with results. Also called pharmacy to let them know I needed the calcium tab that was due at 1800. Report passed on to senior process control tech.
[2020-09-11] MEDS: calcium carb-vit d 500mg-200unit 1 Tablet 1 EACH PO ×2 (19:30→20:28)
[2020-09-11] MEDS: famotidine 20 mg/2 mL INJ IVP (20:29)
[2020-09-12] VITALS (97 sets, daily range): BP systolic 95–124; BP diastolic 1–89; PULSE 57–82; RESP 12–27; TEMP 36.6–37.2; O2SAT 95–100
[2020-09-12] MEDS: HYDROcodone-acetaminophen 5-325 mg Tablet 1 TAB PO ×4 (02:06→20:28)
--- NOTE | 2020-09-12 05:16 | P.PN_ITS ---
Subjective Subjective: Interval history: 30 yo wf who is POD #1 s/p Total thyroidectomy for Grave's disease with symptomatic goiter. The patient reports mild pain, but is o/w without c/o. She is taking po well. Vitals/I&O/Wt Last Vital Signs Temp 98.5 F 09/11/20 20:15 Pulse 78 09/11/20 22:45 Resp 17 09/11/20 22:45 BP 94/53 09/11/20 22:45 Pulse Ox 95 09/11/20 22:45 09/11/20 09/11/20 09/12/20 14:59 22:59 06:59 Intake Total 50 / 50 811 / 861 941.667 / 1802.667 Output Total 200 / 200 200 / 400 Balance -150 / -150 611 / 461 941.667 / 1402.667 Weight last 48 hrs Weight 58.967 kg Physical Exam Const: COMMON NORMALS: patient oriented x3 HENMT: COMMON NORMALS: normocephalic and atraumatic HEAD & SCALP: normal to inspection, normocephalic and atraumatic FACE & SINUS: normal facial exam and other (Negative Cvostek's sign bilaterally.) Eye: COMMON NORMALS: EOMs intact bilaterally and conjunctivae normal CONJUNCTIVA: Yes conjunctivae normal Neck/C-Spine: COMMON NORMALS: full ROM and no lymphadenopathy THYROID: other (The neck wound is clean, intact, and without swelling/erythema.) CAROTIDS: Yes normal carotid upstroke Resp: COMMON NORMALS: normal respiratory effort and clear to auscultation bilaterally EFFORT & INSPECTION: Yes able to speak in complete sentences AUSCULTATION: clear to auscultation bilaterally Cardio: COMMON NORMALS: regular rate, regular rhythm and No murmurs present (Cardio) RATE: regular rate RHYTHM: regular rhythm GI: COMMON NORMALS: Normal to inspection, nondistended, normoactive bowel sounds present Extremity: COMMON NORMALS: normal to inspection and full ROM Neuro: COMMON NORMALS: patient oriented x3, CN's II-XII intact bilaterally, moves all extremities and no focal motor deficits SENSORIUM/ORIENTATION: Yes other (The patient's voice is unchanged from preop.) Psych: COMMON NORMALS: mental status grossly normal Skin: COMMON NORMALS: no rashes or lesions noted GENERAL SKIN EXAM: no rash es or lesions noted Urinary Catheter Management^: Anderson: Cath Placed During This Visit: yes, but has since been removed by the nurse Urinary Catheter Date of Insertion: 09/11/20 Urinary Catheter Time of Insertion: 07:37 Date Urinary Catheter Removed: 09/11/20 Time Urinary Catheter Discontinued: 12:08 Data Other Labs: Serum Calcium and Albumin pending A&P Additional A&P Information Impression: 1) POD #1 s/p Total thyroidectomy doing well except as noted below 2) Serum Calcium levels - slightly decreased yesterday with labs pending this morning Plan: 1) Continue regular diet, closed suction drainage, and pain control 2) Labs pending. The patient began OsCal 600 + D TID yesterday. I will make further recommendations based on the patient's serum Calcium levels, which will be drawn Q12 hours. We will discharge the patient when the patient's serum Calcium levels are stable. Attestations Medical Necessity Statement*: The patient is an inpatient to monitor her post op Calcium and airway. Coding Level of Care Code Acute Information Systems Coordinator for Jarocho Junior
[2020-09-12 06:10] LABS: Albumin Level 3.5 g/dL (3.5-5.2); Calcium 7.2 mg/dL (8.5-10.5)
--- NOTE | 2020-09-12 06:21 | PC.NURSE ---
09/11/20 2030 ionized calcium and albumin results called to dr nicolas. news orders to increase PO calcium to tid 09/12/20 0620 results of calcium and albumin called to dr nicolas. new orders to consult hospitalist placed. dr nicolas said he would call.
--- NOTE | 2020-09-12 07:31 | PC.SOCIAL ---
Addendum entered by Fawn Gayle, RN 09/12/20 07:39: Miley called back to clarify Dr Spencer was not sure who to contact and was going to be at an appt this am. Suggested that Miley call Dr Mccauley since he takes new patients until noon to see if he will need Dr Spencer to call him first or will go ahead and see patient in consult. Provided Dr Mccauley number to Miley ANDINO. Original Note: Had a voicemail from Miley ANDINO which was checked this am and left yesterday indicating a consult was placed for hospitalist. Called and spoke with Suzy this am and updated her that nurse will need to verify from ED whose turn it is for the consult and have Dr Spencer call that provider for the consult. Suzy will update patient care nurse today.
--- NOTE | 2020-09-12 07:57 | PC.NURSE ---
AM NOTE RESTING IN BED - PT TEARFUL THIS AM - VOICING CONCERN ON WHEN SHE WILL GO HOME - EDUCATED PT TO PLAN FOR DAY - NOTED TO BE A&O X3 - RA - LUNGS CTA - NOTED ANTERIOR NECK INCISION TO BE SECURED WITH STERI STRIPS - SCANT AMOUNT OF OLD DRAINAGE NOTED - AREA SURROUNDING STERI STRIPS NOTED TO BE SLIGHTLY EDEMATOUS AND BRIGHT PINK - THERESA SECURED WITH FOAM TAPE TO LEFT NECK - COMPRESSED WITH SANGINOUS DRAINAGE NOTED - ABD SOFT WITH NO DISTENTION - BS PRESENT THROUGHOUT - BLE WITH SCD'S PPP
[2020-09-12] MEDS: gabapentin 300 mg Capsule PO ×2 (08:15→16:53)
[2020-09-12] MEDS: propranolol 20 mg Tablet PO ×3 (08:15→20:23)
[2020-09-12] MEDS: docusate sodium 100 mg Capsule PO ×2 (08:15→16:54)
[2020-09-12] MEDS: famotidine 20 mg/2 mL INJ IVP ×2 (08:15→08:19)
[2020-09-12] MEDS: lactated ringers 1,000 ML 100 ML IV ×2 (08:31→20:21)
[2020-09-12] MEDS: methIMAzole 5 MG Tablet 10 MG PO ×2 (08:33→16:53)
[2020-09-12] MEDS: calcium carb-vit d 500mg-200unit 1 Tablet 2 EACH PO ×3 (08:33→20:23)
[2020-09-12] MEDS: BuSPIRONE 10 mg Tablet PO ×2 (08:35→16:53)
--- NOTE | 2020-09-12 08:56 | PC.CHAP ---
Pastoral Care Encounter/Spiritual Assessment Type of Contact [] Declined elevator constructor hydraulic visit [] Patient/Family/Request visit [] Outpatient visit [] Follow-up visit [] Physician referral [] Code/Alert [x] Routine visit [] Staff referral [] Actively dying [] Patient sleeping [] Family support [] [] Out of room [] Palliative care [] [] Receiving care in room [] Pre-surgical visit [] Trauma [] Long length of stay [x] ICU visit [] Other: Relational/Emotional Strength [] Patient feels connected with others/family/visitors/staff [] Distress [] Loneliness/isolation [] Abandonment Spirituality of Patient [] Person of Alisia [] Attends Moravian of their Alisia [] Believes in Prayer [] Reads Bible or Zoroastrianism materials [] There are Spiritual issues to be addressed Sterilization Tech Interventions [x] Prayer [] Active listening [] Non-anxious presence [] Spiritual/emotional support [] Crisis/trauma care [] Spiritual counseling [] Bereavement support [] Provided bereavement packet [] Provided Bible/devotional materials [] Provided toy/stuffed animal, coloring book to patient or family member [] Provided Communion [] Anointing/[place] [] Salvation [x] Completed spiritual assessment [] Other: Impact on Illness or Injury [] Angry [] Fearful [] Anxious [] Often cries [] Exhaustion [] Unable to work [] Unable to attend church [] Unable to walk/stand [] Unable to read [] Unable to drive [] Unable to eat/drink [] Unable to sleep [] Unable to be with family [] Patient intubated [] Other: Summary Time spent with patient
[2020-09-12] MEDS: calcitriol 0.25 mcg Capsule PO ×2 (09:17→16:54)
--- NOTE | 2020-09-12 10:51 | PC.NURSE ---
DR YADIEL COTTO PHONED - PT UPDATE GIVEN
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
[2020-09-12 18:25] LABS: Albumin Level 3.5 g/dL (3.5-5.2); Calcium 8.3 mg/dL (8.5-10.5)
[2020-09-13] VITALS (28 sets, daily range): BP systolic 117–135; BP diastolic 73–81; PULSE 47–77; RESP 15–20; TEMP 36.7–36.8; O2SAT 96–100
[2020-09-13] MEDS: HYDROcodone-acetaminophen 5-325 mg Tablet 1 TAB PO ×4 (00:51→20:04)
--- NOTE | 2020-09-13 05:01 | P.PN_ITS ---
Subjective Subjective: Interval history: 30 yo wf who is POD #2 s/p Total thyroidectomy for Grave's disease with a symptomatic goiter. The patient's post op course has been complicated by hypocalcemia. The patient reports that she is doing well. She is eating well, her bowel and bladder habits are unchanged from preop, and she has minimal pain. The patient denies any perioral numbness or tingling, and is o/w without c/o. Medications: Reviewed: Yes Vitals/I&O/Wt Last Vital Signs Temp 98.2 F 09/13/20 03:53 Pulse 63 09/12/20 22:00 Resp 17 09/12/20 20:34 BP 122/81 09/12/20 20:30 Pulse Ox 99 09/12/20 20:34 09/12/20 09/12/20 09/13/20 14:59 22:59 06:59 Intake Total 1370 / 1370 1430 / 2800 Output Total 15 / 40 Balance 1345 / 1345 1415 / 2760 Physical Exam Const: COMMON NORMALS: no acute distress, patient oriented x3, healthy appearing and alert HENMT: COMMON NORMALS: normocephalic HEAD & SCALP: normal to inspection and normocephalic FACE & SINUS: normal facial exam Eye: COMMON NORMALS: EOMs intact bilaterally and conjunctivae normal GENERAL EYE: appearance normal, both eyes and all related structures CONJUNCTIVA: Yes conjunctivae normal Neck/C-Spine: COMMON NORMALS: full ROM, no lymphadenopathy and supple GENERAL: Yes normal visual inspection and Yes trachea midline THYROID: other (Thyroid incision intact, without erythema or swelling.) CAROTIDS: Yes normal carotid upstroke Lymph: LYMPHATIC: no lymphadenopathy noted Resp: COMMON NORMALS: normal respiratory effort and clear to auscultation bilaterally AUSCULTATION: clear to auscultation bilaterally Cardio: COMMON NORMALS: regular rate, regular rhythm and No murmurs present (Cardio) RATE: regular rate RHYTHM: regular rhythm GI: COMMON NORMALS: Normal to inspection, nondistended, normoactive bowel sounds present Extremity: COMMON NORMALS: normal to inspection Neuro: COMMON NORMALS: patient oriented x3 and CN's II-XII intact bilaterally SENSORIUM/ORIENTATION: Yes alert Psych: COMMON NORMALS: mental status grossly normal Skin: COMMON NORMALS: no rashes or lesions noted GENERAL SKIN EXAM: no rashes or lesions noted Urinary Catheter Management^: Anderson: Cath Placed During This Visit: yes, but has since been removed by the nurse Urinary Catheter Date of Insertion: 09/11/20 Urinary Catheter Time of Insertion: 07:37 Date Urinary Catheter Removed: 09/11/20 Time Urinary Catheter Discontinued: 12:08 A&P Additional A&P Information Impression: 1) 30 yo wf who is POD #2 s/p total thyroidectomy for Grave's/symptomatic goiter. The patient is doing well except as noted below. 2) Post op Hypocalcemia - most likely temporary. Plan: 1) We will d/c the patient's Methimizole and Propranolol today and will start Synthroid 100mcg po QD. We will d/c to home when #2 below is stable. 2) Appreciate Dr. Mccauley's input and assistance. The patient is currently on OsCal 1000mg po TID and Rocaltrol 0.25mcg po BID. We will follow serum albumin and calcium levels BID and will adjust as indicated. Attestations Medical Necessity Statement*: The patient is admitted for observation/treatment of her post op serum calcium levels. Coding Level of Care Code Acute Manager Renewable Energy for Jarocho Junior
[2020-09-13 05:04] LABS: Basophils % 0.3 %; Eosinophils # 0.1 10^3/uL (0.0-0.8); Eosinophils % 1.3 %; Hematocrit 31.6 % (37.0-47.0); Hemoglobin 10.3 g/dL (11.5-15.3); Lymphocytes # 2.9 10^3/uL (0.8-4.8); Lymphocytes % 43.2 %; Mean Corpuscular HGB Conc 32.6 g/dL (30.0-36.0); Mean Corpuscular Hemoglobin 29.7 pg (28.0-34.0); Mean Corpuscular Volume 91.1 fL (81-99); Mean Platelet Volume 10.3 fL (7.4-10.4); Monocytes # 0.3 10^3/uL (0.2-0.9); Monocytes % 5.1 %; Neutrophils # 3.36 10^3/uL (1.8-7.7); Nucleated Red Blood Cells % 0 %; Platelet Count 210 10^3/cmm (130-400); Red Blood Count 3.47 10^6/uL (4.1-5.3); Red Cell Distribution Width 13.6 % (12.1-15.1); White Blood Count 6.7 10^3/uL (4.0-10.0)
[2020-09-13] MEDS: lactated ringers 1,000 ML 100 ML IV (05:17)
[2020-09-13] MEDS: levothyroxine 100 mcg Tablet PO (05:17)
[2020-09-13 05:26] LABS: Alanine Aminotransferase 11 U/L (0-33); Albumin Level 3.4 g/dL (3.5-5.2); Alkaline Phosphatase 134 IU/L (35-105); Anion Gap 9.9 (5-19); Aspartate Amino Transferase 11 U/L (0-32); Blood Urea Nitrogen 8 mg/dL (6-20); Calcium 8.9 mg/dL (8.5-10.5); Carbon Dioxide 26 mmol/L (22-29); Chloride 109 mmol/L (98-107); Globulin 2.1 g/dL (1.3-4.6); Glomerular Filtration Rate 259.5 mL/min (90-130); Glucose 83 mg/dL (65-115); Osmolality Calculated 289 mOsm/kg (285-295); Potassium 3.9 mmol/L (3.5-5.1); Sodium 141 mmol/L (136-145); Total Bilirubin 0.2 mg/dL (0.15-1.2); Total Protein 5.5 g/dL (6.6-8.7)
[2020-09-13] MEDS: BuSPIRONE 10 mg Tablet PO ×2 (08:19→17:02)
[2020-09-13] MEDS: docusate sodium 100 mg Capsule PO ×2 (08:19→17:02)
[2020-09-13] MEDS: famotidine 20 mg/2 mL INJ IVP ×2 (08:19→20:05)
[2020-09-13] MEDS: gabapentin 300 mg Capsule PO ×2 (08:19→17:02)
[2020-09-13] MEDS: calcium carb-vit d 500mg-200unit 1 Tablet 2 EACH PO ×3 (08:20→20:05)
[2020-09-13] MEDS: calcitriol 0.25 mcg Capsule PO ×2 (08:22→17:02)
--- NOTE | 2020-09-13 10:23 | P.PN_ITS ---
Subjective Subjective: Interval history: Kayce reports she is feeling ok. Denies any other concerns. Has a little bit of oozing from the surgical site. Medications: Reviewed: Yes Vitals/I&O/Wt Last Vital Signs Temp 98.2 F 09/13/20 03:53 Pulse 60 09/13/20 08:25 Resp 18 09/13/20 08:25 BP 123/76 09/13/20 05:00 Pulse Ox 98 09/13/20 08:25 09/12/20 09/13/20 09/13/20 22:59 06:59 14:59 Intake Total 1430 / 2800 1253.333 / 4053.333 631.667 / 631.667 Output Total Balance 1415 / 2760 1253.333 / 4013.333 631.667 / 631.667 Physical Exam Narrative: EXAM NARRATIVE: General exam no apparent distress Neck is supple. THERESA drain noted. No obvious infection. Cardiovascular regular rate and rhythm without murmur. No S3 or S4 Lungs clear no wheezing or crackles Abdomen is soft with positive bowel sounds. No obvious organomegaly Extremities no cyanosis clubbing or edema, cap refill brisk Urinary Catheter Management^: Anderson: Cath Placed During This Visit: yes, but has since been removed by the nurse Urinary Catheter Date of Insertion: 09/11/20 Urinary Catheter Time of Insertion: 07:37 Date Urinary Catheter Removed: 09/11/20 Time Urinary Catheter Discontinued: 12:08 Data : 09/13/20 04:52 09/13/20 04:52 A&P Assessment and plan (1) Hypocalcemia: Occurred following thyroidectomy. Surgical note indicates parathyroid glands preserved. This is likely to be temporary. Agree with initiation of 1000 mg of calcium every 8 hours. Could go up to as much as every 6 hours if needed. Agree with calcitriol 0.25 mcg by mouth twice daily. Could go as high as 0.5 mcg twice daily if needed. Give calcium gluconate yesterday Calcium level is normal this morning It does not appear any more IV calcium is needed at this time. Will sign off. Please call with any questions or concerns. Defer rest of calcium management to ENT. Status: Acute (2) Status post complete thyroidectomy: Patient is directly postoperative Status: Acute (3) Neuropathy: Continue home medications Status: Acute (4) Anxiety and depression: Continue home medications Status: Acute Attestations Medical Necessity Statement*: As per primary Coding Level of Care Code Acute Environmental Health Inspector for Chg Fwd Diagnoses Hypocalcemia E83.51 Status post complete thyroidectomy E89.0 Neuropathy G62.9 Anxiety and depression F41.9; F32.9
[2020-09-13 18:29] LABS: Albumin Level 3.9 g/dL (3.5-5.2)
--- NOTE | 2020-09-13 19:25 | PC.NURSE ---
AO x4, small amount of serosangeous drainage to L neck THERESA drain site, anterior neck clean dry and intact, sitting up to chair, call light within reach, denied SOB RA
[2020-09-13 20:04] LABS: Parathyroid Hormone 6.8 pg/mL (15-65)
[2020-09-13 21:09] LABS: Calcium 9.3 mg/dL (8.5-10.5)
[2020-09-14] MEDS: HYDROcodone-acetaminophen 5-325 mg Tablet 1 TAB PO (03:25)
[2020-09-14] MEDS: lactated ringers 1,000 ML 50 ML IV (03:28)
[2020-09-14 03:35] LABS: Albumin Level 3.8 g/dL (3.5-5.2); Calcium 8.9 mg/dL (8.5-10.5)
[2020-09-14] MEDS: levothyroxine 100 mcg Tablet PO (05:03)
--- NOTE | 2020-09-14 05:14 | PC.NURSE ---
Dr. Spencer at bedside, removed THERESA drain to neck, informed this nurse he would write prescriptions for medications which he wants the patient to have prior to D/C to take home
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
--- NOTE | 2020-09-14 05:28 | PM.PN ---
Subjective Subjective: Interval history: 30 yo wf who is POD #3 s/p total thyroidectomy who developed post operative hypocalcemia. The patient patient's serum calcium has been stable on po meds and the patient desires discharge. Vitals/I&O/Wt Last Vital Signs Temp 98.2 F 09/13/20 03:53 Pulse 77 09/13/20 19:40 Resp 18 09/13/20 19:40 BP 117/73 09/13/20 15:31 Pulse Ox 96 09/13/20 19:40 09/13/20 09/13/20 09/14/20 14:59 22:59 06:59 Intake Total 991.667 / 991.667 500 / 1491.667 728.333 / 2220.000 Balance 991.667 / 991.667 500 / 1491.667 728.333 / 2220.000 Physical Exam Const: COMMON NORMALS: no acute distress and patient oriented x3 HENMT: COMMON NORMALS: normocephalic, hearing grossly normal bilaterally and Normal external nose present HEAD & SCALP: normocephalic FACE & SINUS: normal facial exam NOSE: Normal external nose present Eye: COMMON NORMALS: EOMs intact bilaterally, conjunctivae normal and no scleral icterus CONJUNCTIVA: Yes conjunctivae normal Neck/C-Spine: COMMON NORMALS: no lymphadenopathy and supple THYROID: other OTHER: The anterior neck incision is clean, dry, intact, without swelling or erythema. Lymph: LYMPHATIC: no lymphadenopathy noted Resp: COMMON NORMALS: normal respiratory effort, No use of accessory muscles and clear to auscultation bilaterally AUSCULTATION: clear to auscultation bilaterally Cardio: COMMON NORMALS: regular rate, regular rhythm and No murmurs present (Cardio) RATE: regular rate RHYTHM: regular rhythm GI: COMMON NORMALS: Normal to inspection, nondistended, normoactive bowel sounds present Extremity: COMMON NORMALS: normal to inspection and full ROM Neuro: COMMON NORMALS: patient oriented x3 and CN's II-XII intact bilaterally CRANIAL NERVES: Yes other (Negative Chvostek's sign.) Psych: COMMON NORMALS: mental status grossly normal Skin: COMMON NORMALS: no rashes or lesions noted GENERAL SKIN EXAM: no rashes or lesions noted Urinary Catheter Management^: Anderson: Cath Placed During This Visit: yes, but has since been removed by the nurse Urinary Catheter Date of Insertion: 09/11/20 Urinary Catheter Time of Insertion: 07:37 Date Urinary Catheter Removed: 09/11/20 Time Urinary Catheter Discontinued: 12:08 Data : 09/13/20 04:52 09/13/20 04:52 A&P Additional A&P Information Impression: 1) 30 yo wf who is POD #3 s/p total thyroidectomy for Grave's disease with symptomatic goiter who is doing well except as noted below 2) Post op hypocalcemia - stable on oral medications Plan: 08/04) - D/C to home - Effort (5/325) tabs: take 1-2 tabs po Q5 hours prn pain, #25, NR - Rocaltrol (0.25mcg) tabs: take 1 po BID, #30, RX5 - Oscal 600mg + D: take 2 tabs po TID, #180, RX5 - Synthroid (100mcg) tabs: take one tab po QD, #30, NR - The patient is to discontinue the Methimizole and Propranolol - Regular diet - The patient is to o/w resume her other preop medications - The patient is to f/u in Dr. Spencer's office on 09/17/20 @ 13:00 hours - Contact Dr. Spencer for any problems Attestations Medical Necessity Statement*: The patient was admitted for observation of her airway and post op calcium levels Coding Level of Care Code Acute Watch Mechanic for Jarocho Junior
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
[2020-09-14 07:00] VITALS: BP 117/71; PULSE 63; RESP 15; TEMP 36.8
[2020-09-14 08:00] VITALS: BP 116/82; PULSE 62; RESP 18
[2020-09-14 09:00] VITALS: BP 135/76; PULSE 72; RESP 16
[2020-09-14 09:22] VITALS: PULSE 76; RESP 16; O2SAT 98
[2020-09-14] MEDS: calcium carb-vit d 500mg-200unit 1 Tablet 2 EACH PO ×2 (09:30→10:11)
[2020-09-14 10:00] VITALS: BP 135/76; PULSE 70; RESP 20
[2020-09-14] MEDS: BuSPIRONE 10 mg Tablet PO (10:11)
[2020-09-14] MEDS: calcitriol 0.25 mcg Capsule PO (10:11)
[2020-09-14] MEDS: docusate sodium 100 mg Capsule PO (10:12)
[2020-09-14] MEDS: gabapentin 300 mg Capsule PO (10:12)
== END 2020-09-14 10:30 | disposition home or self-care (01) | DRG 627 ==
LOC: ICU 13:06
PROVIDERS: Anesthesiology; Internal Medicine; Admitting Provider Specialist; PCP Nurse Practitioner Family; Visit Provider Specialist
PROC: 0GTJ0ZZ Resection of Thyroid Gland Isthmus, Open Approach (ICD-10-PCS; CPT 60240; principal; 2020-09-11 07:00)
DX: E05.00 Thyrotoxicosis with diffuse goiter without thyrotoxic crisis or storm (principal); E83.51 Hypocalcemia; F41.8 Other specified anxiety disorders; G62.9 Polyneuropathy, unspecified; E04.8 Other specified nontoxic goiter; I10 Essential (primary) hypertension; F17.210 Nicotine dependence, cigarettes, uncomplicated; J45.909 Unspecified asthma, uncomplicated
CPT/HCPCS: 12345; 36415; 51702; 80053; 81025; 82040; 82310; 82330; 83970; 84703; 85025; 88307; 96374; J0131; J0171; J0330; J0610; J0690; J1100; J1170; J2250; J2405; J2704; J3010; J3490; J7030

== ENCOUNTER → 2020-10-16 08:40 | Outpatient (BNVA) | payer MEDICAID, SELFPAY | PROVIDERS: PCP Nurse Practitioner Family; Visit Provider Specialist | DX: E89.0 Postprocedural hypothyroidism (principal); E83.51 Hypocalcemia; E55.9 Vitamin D deficiency, unspecified | CPT/HCPCS: 82040; 82306; 82310; 83970; 84439; 84443 ==

== ENCOUNTER 2020-12-11 18:10 | Emergency (ER) | payer MEDICAID, SELFPAY ==
[2020-12-11 18:21] VITALS: BP 120/82; PULSE 76; RESP 18; TEMP 36.5; O2SAT 98; BMI 23.6
--- NOTE | 2020-12-11 18:28 | ECG_ITS ---
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 Measurements Intervals [place] Rate: 63 P: 48 FL: 175 QRS: 58 QRSD: 83 T: 74 QT: 384 QTc: 396 Interpretive Statements SINUS RHYTHM NONSPECIFIC T-WAVE ABNORMALITY Compared to ECG 03/20/2018 16:46:25 Sinus tachycardia no longer present T-wave abnormality still present Electronically Signed On 12-11-2020 19:24:15 CDT by April Headley M.D. [id number]
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
[2020-12-11 18:58] VITALS: O2SAT 98
[2020-12-11 19:25] VITALS: BP 134/93; PULSE 68; RESP 16; O2SAT 98
[2020-12-11 19:29] LABS: Basophils % 0.4 %; Eosinophils # 0.2 10^3/uL (0.0-0.8); Eosinophils % 3.4 %; Hematocrit 38.9 % (37.0-47.0); Hemoglobin 12.8 g/dL (11.5-15.3); Lymphocytes # 2.4 10^3/uL (0.8-4.8); Lymphocytes % 35.9 %; Mean Corpuscular HGB Conc 32.9 g/dL (30.0-36.0); Mean Corpuscular Hemoglobin 31.1 pg (28.0-34.0); Mean Corpuscular Volume 94.6 fL (81-99); Mean Platelet Volume 10.4 fL (7.4-10.4); Monocytes # 0.4 10^3/uL (0.2-0.9); Monocytes % 5.3 %; Neutrophils % 54.9 %; Nucleated Red Blood Cells % 0 %; Platelet Count 239 10^3/cmm (130-400); Red Blood Count 4.11 10^6/uL (4.1-5.3); White Blood Count 6.8 10^3/uL (4.0-10.0)
[2020-12-11 20:09] LABS: HCG Qualitative Urine. Negative (Negative)
[2020-12-11 20:14] LABS: Blood Urea Nitrogen 7 mg/dL (6-20); Calcium 8.9 mg/dL (8.5-10.5); Carbon Dioxide 25 mmol/L (22-29); Chloride 108 mmol/L (98-107); Glomerular Filtration Rate 186.2 mL/min (90-130); Glucose 118 mg/dL (65-115); Osmolality Calculated 291 mOsm/kg (285-295); Sodium 141 mmol/L (136-145)
[2020-12-11 20:15] LABS: Anion Gap 11.8 (5-19); Potassium 3.8 mmol/L (3.5-5.1)
[2020-12-11 21:01] VITALS: BP 122/92; PULSE 66; RESP 17; O2SAT 100
== END 2020-12-11 21:06 | disposition home or self-care (01) ==
PROVIDERS: Emergency Provider Emergency Medicine
DX: R53.1 Weakness (principal); F17.210 Nicotine dependence, cigarettes, uncomplicated
CPT/HCPCS: 80048; 81025; 84443; 85025; 93005; 99283